=== PATIENT | female | born 2000 | race Caucasian/White ===

== ENCOUNTER 2022-02-01 12:52 | Emergency (ER) | payer SELFPAY ==
[2022-02-01] MEDS ORDERED: Ondansetron PF 4 MG/2 ML Vial ONE (13:34)
[2022-02-01] MEDS ORDERED: Ketorolac Tromethamine 30 MG/ML VIAL ONE (13:34)
[2022-02-01 13:55] LABS: #Eosinphils 0.1 10x3/uL (0.0-0.5); #Monocytes 0.4 10x3/uL (0.0-1.1); #Neutrophils 3.2 10x3/uL (1.5-8.4); %Basophils 0.7 % (0.0-2.0); %Eosinophils 1.3 % (0.0-6.0); %Lymphocytes 33.4 % (18.0-47.0); %Monocytes 7.3 % (0.0-10.0); %Neutrophils 57.1 % (40.0-75.0); Hemoglobin 12.8 g/dL (12.0-15.5); Mean Corpuscular HGB CONC 33.1 g/dL (32.0-36.0); Mean Corpuscular Hemoglobin 28.4 pg (27.0-33.0); Mean Corpuscular Volume 85.8 fl (81.6-98.3); Mean Platelet Volume 10.3 fl (7.4-10.4); Platelet Count 280 10x3/uL (150-450); RBC Distribution Width 12.5 % (11.5-14.5); Red Blood Cell (RBC) Count 4.51 10x6/uL (3.90-5.03); White Blood Cell (WBC) Count 5.6 10x3/uL (3.5-10.5)
[2022-02-01 14:06] LABS: ALT (SGPT) 16 U/L (8-55); AST (SGOT) 19 U/L (5-34); Albumin 4.3 g/dL (3.5-5.0); Alkaline Phosphatase 61 U/L (40-110); Anion Gap 13 mmol/L (10-20); BUN (Urea Nitrogen) 10 mg/dL (7.0-18.7); Calc. Creatinine Clearance 0 mL/min (70-130); Calcium 9.4 mg/dL (7.8-10.44); Carbon Dioxide 22 mmol/L (22-29); Chloride 106 mmol/L (98-107); Estimated GFR 117; Glucose 117 mg/dL (70-105); Potassium 4.1 mmol/L (3.5-5.1); Protein, Total 7.3 g/dL (6.0-8.3); Sodium 137 mmol/L (136-145)
[2022-02-01 14:35] LABS: Bilirubin Neg (Negative); Blood, Urine 25 (Negative); Clarity Clear (Clear); Glucose, Urine (Dipstick) Normal (Negative); Ketone, Urine Negative (Negative); Leukocyte Negative (Negative); Nitrite Positive (Negative); Protein, Urine (Dipstick) 15 mg/dl (Neg-Trace); Urobilinogen Normal mg/dL (Less than 2)
[2022-02-01 14:44] LABS: Pregnancy Test - Urine (BHCG) Negative (Negative); Pregu Control Background? CLEAR/WHITE (CLR/WHITE); Pregu Control Bar Appear? YES (CONTROL BAR)
[2022-02-01 14:51] LABS: Bacteria/HPF 3+ HPF (None Seen); WBC/HPF 0-3 HPF (0-3)
== END 2022-02-01 15:43 | disposition home or self-care (01) ==
LOC: CSHERS 12:52
DX: N20.1 Calculus of ureter (principal); F17.290 Nicotine dependence, other tobacco product, uncomplicated
CPT/HCPCS: 74176; 80053; 81003; 81015; 81025; 85025; 96361; 96374; 96375; J1885; J2405

== ENCOUNTER 2023-03-19 23:28 | Day surgery (SDC) | payer BC, OTHER ==
[2023-03-20] MEDS ORDERED: hydrALAZINE 20 MG/ML VIAL SLOW IVP PRN (00:23)
[2023-03-20 00:50] LABS: Fetal Membranes Rupture No Membranes Rupture (No Rupture)
== END 2023-03-20 01:52 | disposition home or self-care (01) ==
LOC: CSHLD/OP 23:28
PROVIDERS: ATTEND Family Medicine
DX: O41.93X0 Disorder of amniotic fluid and membranes, unspecified, third trimester, not applicable or unspecified (principal); O47.03 False labor before 37 completed weeks of gestation, third trimester; O99.013 Anemia complicating pregnancy, third trimester; D50.9 Iron deficiency anemia, unspecified; Z3A.35 35 weeks gestation of pregnancy; Z79.899 Other long term (current) drug therapy
CPT/HCPCS: 84112; 99283

== ENCOUNTER 2023-04-18 18:00 | Inpatient (IN) | payer BC, OTHER ==
[~2023-04-18 18:00] MED LIST: Acetaminophen 500 MG TAB PO PRN; Bupivacaine 0.25% HCL 30 ML VIAL ONE; Carboprost 250 MCG/ML AMP IM PRN; Diphenoxylate HCl/Atropine Tablet PO PRN; HYDROcodone/Acetaminophen 5/325 mg Tablet PO PRN; Ibuprofen 800 MG TAB PO PRN; Lidocaine 1% (PF) 30 ML VIAL SC PRN; Methylergonovine 0.2 MG/ML VIAL IM PRN; Misoprostol 200 MCG TAB PR PRN; Ondansetron PF 4 MG/2 ML Vial IVP PRN; Oxytocin 30 units/NS 500 ML 500 ML IV SCH; Penicillin G Potassium 5 MILL.UNITS in Sodium Chloride 0.9% 100 ML IVPB SCH; Promethazine HCl 25 MG/ML VIAL IM PRN; Tranexamic Acid 1,000 MG/10 ML VIAL IVP PRN; ePHEDrine Sulfate 50 MG/10 ML VIAL ONE; fentaNYL 50 mcg/mL 1 mL Vial SLOW IVP PRN; hydrALAZINE 20 MG/ML VIAL SLOW IVP PRN
[2023-04-18] MEDS: Lactated Ringer's 1,000 ML IV SCH (20:35)
[2023-04-18] MEDS: Misoprostol 100 MCG TAB VAG SCH (20:50)
[2023-04-18 20:52] LABS: Hematocrit 29.5 % (34.9-44.5); Hemoglobin 9.9 g/dL (12.0-15.5); Mean Corpuscular HGB CONC 33.6 g/dL (32.0-36.0); Mean Corpuscular Hemoglobin 27.4 pg (27.0-33.0); Mean Corpuscular Volume 81.7 fl (81.6-98.3); Mean Platelet Volume 11.1 fl (7.4-10.4); Platelet Count 227 10x3/uL (150-450); RBC Distribution Width 13.7 % (11.5-14.5); Red Blood Cell (RBC) Count 3.61 10x6/uL (3.90-5.03); White Blood Cell (WBC) Count 8.4 10x3/uL (3.5-10.5)
[2023-04-18 21:12] VITALS: BMI 26.9
[2023-04-18 21:49] LABS: HBSAg Index 0.17 S/CO (0-0.99); Hep B Surf Ag - L&D Non-Reactive S/CO (NonReactive); Syphilis Antibody Nonreactive (Nonreactive)
[2023-04-19] MEDS: Misoprostol 100 MCG TAB VAG SCH ×5 (00:10→17:46)
[2023-04-19] MEDS ORDERED: Penicillin G Potassium 5 MILL.UNITS VIAL ONE (03:39)
[2023-04-19] MEDS: Lactated Ringer's 1,000 ML IV SCH ×4 (07:57→19:39)
[2023-04-19] MEDS: Penicillin G 2.5 MILL.units 2.5 MILL.UNITS in Premix 1 BAG IVPB SCH ×6 (07:58→20:25)
[2023-04-19] MEDS ORDERED: Lactated Ringer's 500 ML IV PRN (08:21)
[2023-04-19] MEDS ORDERED: ePHEDrine Sulfate 50 MG/10 ML VIAL SLOW IVP PRN (08:21)
[2023-04-19] MEDS ORDERED: Ondansetron PF 4 MG/2 ML Vial IVP PRN (08:21)
[2023-04-19] MEDS ORDERED: Moisturizing Cream (Eucerin) 113 GM JAR TOP PRN (08:21)
[2023-04-19] MEDS ORDERED: Promethazine HCl 25 MG/ML VIAL IM PRN (08:21)
[2023-04-19] MEDS ORDERED: diphenhydrAMINE 50 MG/ML VIAL IVP PRN (08:21)
[2023-04-19] MEDS ORDERED: Naloxone HCl 0.4 mg/ml Vial IVP PRN ×2 (08:21)
[2023-04-19] MEDS ORDERED: Acetaminophen 325 MG TAB PO PRN (08:21)
[2023-04-19] MEDS ORDERED: fentaNYL/Ropivacaine Epidural 100 ML ONE (08:24)
[2023-04-19] MEDS ORDERED: Communication Order-Pharmacy FS SCH (08:30)
[2023-04-19] MEDS: fentaNYL 2 mcg/Ropivacaine 0.2% Epidural 100 ML CADD EPIDURAL SCH ×2 (08:51→18:09)
[2023-04-19] MEDS ORDERED: Dexmedetomidine 200 MCG/2 ML VIAL ONE ×2 (14:49→19:32)
[2023-04-20] MEDS ORDERED: HYDROcodone/Acetaminophen 5/325 mg Tablet PO SCH (01:52)
[2023-04-20] MEDS ORDERED: Bisacodyl 10 MG SUPP PR PRN (01:56)
[2023-04-20] MEDS ORDERED: Milk Of Magnesia 30 ML UDCUP PO PRN (01:56)
[2023-04-20] MEDS ORDERED: Lanolin Ointment 7 GM TUBE TOP PRN (01:56)
[2023-04-20] MEDS ORDERED: Ondansetron PF 4 MG/2 ML Vial IVP PRN (01:56)
[2023-04-20] MEDS ORDERED: Oxytocin 30 units/NS 500 ML 500 ML IV SCH (01:56)
[2023-04-20] MEDS ORDERED: hydrALAZINE 20 MG/ML VIAL SLOW IVP PRN (01:56)
[2023-04-20] MEDS ORDERED: diphenhydrAMINE 25 MG CAP PO PRN (01:56)
[2023-04-20] MEDS ORDERED: Ondansetron ODT 4 MG TAB PO PRN (01:56)
[2023-04-20] MEDS ORDERED: Promethazine HCl 25 MG/ML VIAL IM PRN (01:56)
[2023-04-20] MEDS ORDERED: Preparation H Ointment 28 GM TUBE PR PRN (01:56)
[2023-04-20] MEDS ORDERED: Benzocaine-Menthol 82.5 ML CAN TOP PRN (01:56)
[2023-04-20] MEDS ORDERED: Acetaminophen 325 MG TAB PO PRN (01:56)
[2023-04-20] MEDS ORDERED: Boostrix 0.5 ML (Tdap) VIAL (>/=7 yrs of age) IM ONE (01:56)
[2023-04-20] MEDS ORDERED: Ibuprofen 800 MG TAB PO SCH (02:00)
[2023-04-20] MEDS: Misoprostol 100 MCG TAB VAG SCH ×2 (03:17→03:18)
[2023-04-20] MEDS: Penicillin G 2.5 MILL.units 2.5 MILL.UNITS in Premix 1 BAG IVPB SCH (03:18)
[2023-04-20 03:23] LABS: Hematocrit 28.1 % (34.9-44.5); Hemoglobin 9.2 g/dL (12.0-15.5)
[2023-04-20] MEDS: Prenatal Vitamin 1 TAB PO SCH (08:23)
[2023-04-20] MEDS: Ibuprofen 800 MG TAB PO SCH ×2 (08:23→18:51)
[2023-04-20] MEDS: Ferrous Sulfate 325 MG TAB PO SCH ×2 (08:23→15:55)
[2023-04-20] MEDS: Docusate 100 MG CAP PO SCH (08:23)
[2023-04-20] MEDS: HYDROcodone/Acetaminophen 5/325 mg Tablet PO PRN ×2 (11:21→15:55)
[2023-04-21] MEDS: Docusate 100 MG CAP PO SCH ×2 (02:00→08:11)
[2023-04-21] MEDS: Ibuprofen 800 MG TAB PO SCH ×2 (02:00→10:30)
[2023-04-21 07:51] VITALS: BP 111/72; TEMP 97.7
[2023-04-21] MEDS: Ferrous Sulfate 325 MG TAB PO SCH (08:11)
[2023-04-21] MEDS: Prenatal Vitamin 1 TAB PO SCH (08:11)
== END 2023-04-21 14:00 | disposition home or self-care (01) | DRG 807 ==
LOC: CSHLD 19:18 → CSHPP 04-20 02:50
PROVIDERS: ADMIT Family Medicine; ATTEND Family Medicine
PROC: 10E0XZZ Delivery of Products of Conception, External Approach (ICD-10-PCS; principal; 2023-04-19)
PROC: 10907ZC Drainage of Amniotic Fluid, Therapeutic from Products of Conception, Via Natural or Artificial Opening (ICD-10-PCS; 2023-04-19)
DX: O99.824 Streptococcus B carrier state complicating childbirth (principal); Z37.0 Single live birth; Z3A.39 39 weeks gestation of pregnancy; O77.0 Labor and delivery complicated by meconium in amniotic fluid; O99.02 Anemia complicating childbirth; D56.3 Thalassemia minor
CPT/HCPCS: 36415; 51701; 51702; 85014; 85018; 85027; 86780; 86850; 86900; 86901; 87340; J0665; J2540; J2590; J3010; J7120